=== PATIENT | male | born 1950 | race Caucasian/White ===

== ENCOUNTER 2019-12-03 18:11 | Inpatient (IN) | payer MEDICARE, OTHER ==
[~2019-12-03] VITALS: Ht 172.7 cm; Wt 62.6 kg
--- NOTE | 2019-12-03 18:40 | NUR ---
XI GEIGER FROM SNF FOR PSYCH EVAL. AGITATED, HITTING STAFF. PT CONFUSED, CALM & COOPERATIVE AT THIS TIME. PT SEEN & EVAL'D BY JUANJO CEBALLOS. TUSHAR @ BS & WILL CONT TO MONITOR.
[2019-12-03 19:05] LABS: BASOPHILS # (AUTO) 0.1 /CMM (0.0-0.2); BASOPHILS % (AUTO) 1.2 % (0.0-2.0); EOSINOPHILS % (AUTO) 1.5 % (0.0-6.0); HEMATOCRIT 38 % (39-51); HEMOGLOBIN 12.9 g/dL (13.5-17.5); LYMPHOCYTES # (AUTO) 2.4 /CMM (0.8-4.8); LYMPHOCYTES % (AUTO) 28.3 % (20.0-44.0); MEAN CORPUSCULAR HGB CONC 34 g/dl (31.0-36.0); MEAN CORPUSCULAR VOLUME 85 fL (80-96); MONOCYTES # (AUTO) 0.5 /CMM (0.1-1.30); MONOCYTES % (AUTO) 6.4 % (2.0-12.0); NEUTROPHILS # (AUTO) 5.2 /CMM (1.8-8.9); NEUTROPHILS % (AUTO) 62.6 % (43.0-81.0); PLATELET COUNT (AUTO) 370 /CMM (150-450); RED BLOOD CELL COUNT(AUTO) 4.46 MIL/uL (4.5-6.0); WHITE BLOOD COUNT (AUTO) 8.4 K/uL (4.3-11.0)
[2019-12-03 19:18] LABS: ALANINE AMINOTRANSFERASE 28 U/L (12-78); ALBUMIN 3.4 g/dL (3.4-5.0); ALCOHOL, BLOOD < 3 mg/dL (0-0); ALKALINE PHOSPHATASE 85 U/L (46-116); ASPARTATE AMINOTRANSFERASE 25 U/L (15-37); BILIRUBIN,DIRECT 0.1 mg/dL (0.0-0.2); BILIRUBIN,TOTAL 0.3 mg/dL (0.2-1.0); CARBON DIOXIDE 27 mmol/L (21-32); CHLORIDE 103 mmol/L (98-107); GLUCOSE 110 mg/dL (74-106); POTASSIUM 3.9 mmol/L (3.5-5.1); SODIUM SERUM 138 mmol/L (136-145); TOTAL PROTEIN, SERUM 7.4 g/dL (6.4-8.2); UREA NITROGEN, BLOOD 17 mg/dL (7-18)
[2019-12-03 19:27] LABS: ACETAMINOPHEN < 10 ug/ml (10-30); SALICYLATE 1.2 mg/dL (2.8-20.0)
--- NOTE | 2019-12-03 19:59 | NUR ---
covid swab sent to lab
[2019-12-03 20:21] LABS: APPEARANCE,URINE Clear (CLEAR); BILIRUBIN,URINE Negative (NEGATIVE); BLOOD, URINE Trace-intact Ery/uL (NEGATIVE); COLOR,URINE Yellow (YELLOW); KETONES,URINE Negative (NEGATIVE); LEUKOCYTE ESTERASE ,URINE Negative (NEGATIVE); NITRITE, URINE Negative (NEGATIVE); PH,URINE 5.5 (5.0-8.0); PROTEIN,URINE Negative (NEGATIVE); UGLUCOSE Negative (NEGATIVE); UROBILINOGEN,URINE 0.2 EU/dL (0.2)
[2019-12-03 20:25] LABS: BACTERIA,URINE Rare /HPF (None Seen); WBC,URINE NONE SEEN /HPF (0-3)
--- NOTE | 2019-12-03 20:41 | NUR ---
CALLED [facility] CLERK GEOFFREY MALDONADO FOR EVALUATION. EN ROUTE TO HOSPITAL
--- NOTE | 2019-12-03 21:51 | NUR ---
REPORT GIVEN TO GEOFFREY OROURKE FOR HILDA
[2019-12-03] MEDS ORDERED: DEXT15DR6 OP (22:08)
[2019-12-03] MEDS ORDERED: HYDR-4354 PO (22:08)
[2019-12-03] MEDS ORDERED: LORA-259 IM (22:08)
[2019-12-03] MEDS ORDERED: ACET-73 PO (22:08)
[2019-12-03] MEDS ORDERED: LOSA50TA39 PO (22:08)
[2019-12-03] MEDS ORDERED: BISA-79 PO (22:08)
[2019-12-03] MEDS ORDERED: NA P133E RC (22:08)
[2019-12-03] MEDS ORDERED: ATOR10TA PO (22:08)
[2019-12-03] MEDS ORDERED: TAMS-12 PO (22:08)
[2019-12-03] MEDS ORDERED: MAGN400O21 PO (22:08)
[2019-12-03] MEDS ORDERED: ASPI-1169 PO (22:08)
[2019-12-03] MEDS ORDERED: LIDO30AD10 TP (22:08)
[2019-12-03] MEDS ORDERED: OLAN2.5T3 PO (22:08)
[2019-12-03] MEDS ORDERED: MECL-159 PO (22:08)
[2019-12-03] MEDS ORDERED: FINA5TAB3 PO (22:08)
[2019-12-03] MEDS ORDERED: DOCU-141 PO (22:08)
[2019-12-03] MEDS ORDERED: MAGNESIUM HYDROXIDE 30 ML UDC PO PRN (23:00)
[2019-12-03] MEDS ORDERED: ZOLPIDEM TARTRATE 5 MG TABLET PO PRN (23:00)
[2019-12-03] MEDS ORDERED: MAG HYDROX/AL HYDROX/SIMETH 30 ML UDC PO PRN (23:00)
[2019-12-03] MEDS: LORAZEPAM 1 MG TABLET PO PRN (23:19)
--- NOTE | 2019-12-03 23:20 | NUR ---
GPS RN NOTE: ANXIETY/AGITATION PATIENT IS AGITATED, YELLING, SCREAMING, ANXIOUS, PARANOID, RESTLESS, HYPERVERBAL AT THIS TIME, CURSING STAFF. PRN ATIVAN 1 MG, 1 TAB PO GIVEN, WILL CONTINUE TO MONITOR .
--- NOTE | 2019-12-03 23:22 | NUR ---
ADMISSION NOTES: ADMITTED THIS 69Y/O MALE PATIENT ADMIT FROM [facility] ED / INTIALLY FROM [facility], ADMITTED TO GPS ON 5150 HOLD, PER HOLD DANGER TO OTHERS GD , INCREASED AGITATION STRIKING OUT BEHAVIOR AND HIT STAFF MEMBER IN THE FACE LAST WEEK, SCREAMING YELLING FIGHTING WITH STAFF MEMEBER,UPON FACE TO FACE ASSESSMENT PATIENT IS A&O X , 1,2 ANXIOUS ,DISORGNIZED PARANOID YELLING SCREAMING , TALKATIVE, HYPERVERBAL, PARANOID,DISHELVED ,EASILY GETS AGITATED,UNCOOPERTIVE, DENIES SI /HI AT THIS TIME, PT. IS POOR HISTORIAN, POOR INSIGHT ,POOR JUDGEMENT , PT. REFUSED TO SIGNS ADMISSION CONSENT PAPERS , DUE TO MENTAL STATUS / UNCOOPERTIVE AGITATION , PT. REFUSED INTITAALY BLOOD SUGAR CHECK , ENCOURAGED, EXPLAINED RISKS AND BENEFITS STILL REFUSED, PER PT. I DONT WANTS CHECK AT THIS TIME , BOTH MD AWARE AND NOTIFIED OF THE ADMISSION, BELONGINGS CONTRABAND WERE DONE , NURSING ASSESSMENT DONE ,PT. RIGHTS DISCUSS BY TEACHER CCLC , PROVIDE THE PT. WITH HANDBOOK, AND MEDICATIONS GUIDE, ENVIRONMENTAL SAFETY CHECK DONE, ENCOURAGED PT. VERBALIZED ANY FEELING CONCERN TO STAFF, ORIENT TO UNIT POLICY, NO ACUTE DISTRESS NOTED,VITAL SIGNS WNL ,DENIES ANY PAIN AT THIS TIME,WILL CONTINUE TO MONITOR FOR Q15 SAFETY AND BEHAVIOR.
[2019-12-03] MEDS ORDERED: BLOOD SUGAR DIAGNOSTIC 1 EACH STRIP IN ONE (23:30)
[2019-12-04] VITALS: BP 135/70
[2019-12-04] MEDS ORDERED: LIDOCAINE 5% (PATCH) 1 EA PATCH TP SCH (02:00)
[2019-12-04] MEDS ORDERED: HYDROCODONE/APAP 10/325MG 1 EA TABLET PO PRN (02:00)
[2019-12-04 08:00] VITALS: BP 119/68
[2019-12-04] MEDS: FINASTERIDE (5 MG) 5 MG TABLET PO SCH (08:56)
[2019-12-04] MEDS: ASPIRIN EC 81 MG TABLET.DR PO SCH (08:56)
[2019-12-04] MEDS: LOSARTAN POTASSIUM 50 MG TABLET PO SCH (08:56)
[2019-12-04] MEDS: LIDOCAINE 5% (PATCH) 1 EA PATCH TP SCH (08:57)
[2019-12-04] MEDS: busPIRone 5 MG TABLET PO SCH ×2 (14:31→17:31)
[2019-12-04 16:00] VITALS: BP 98/66
[2019-12-04 20:00] VITALS: BP 105/62
[2019-12-04] MEDS: TAMSULOSIN 0.4 MG CAP.SR.24H PO SCH (21:32)
[2019-12-04] MEDS: QUETIAPINE FUMARATE 25 MG TABLET PO SCH (21:32)
[2019-12-04] MEDS: ATORVASTATIN 10 MG TABLET PO SCH (21:32)
[2019-12-05 08:00] VITALS: BP 111/65
[2019-12-05 08:02] LABS: BASOPHILS # (AUTO) 0.1 /CMM (0.0-0.2); BASOPHILS % (AUTO) 1.2 % (0.0-2.0); CREATININE 1.1 mg/dL (0.6-1.3); EOSINOPHILS % (AUTO) 2.9 % (0.0-6.0); HEMATOCRIT 39 % (39-51); HEMOGLOBIN 12.9 g/dL (13.5-17.5); LYMPHOCYTES # (AUTO) 2.4 /CMM (0.8-4.8); LYMPHOCYTES % (AUTO) 32.4 % (20.0-44.0); MEAN CORPUSCULAR HGB CONC 33 g/dl (31.0-36.0); MEAN CORPUSCULAR VOLUME 86 fL (80-96); MONOCYTES # (AUTO) 0.5 /CMM (0.1-1.30); MONOCYTES % (AUTO) 7.1 % (2.0-12.0); NEUTROPHILS # (AUTO) 4.1 /CMM (1.8-8.9); NEUTROPHILS % (AUTO) 56.4 % (43.0-81.0); PLATELET COUNT (AUTO) 345 /CMM (150-450); POTASSIUM 3.9 mmol/L (3.5-5.1); WHITE BLOOD COUNT (AUTO) 7.3 K/uL (4.3-11.0)
[2019-12-05] MEDS: busPIRone 5 MG TABLET PO SCH ×3 (08:27→16:40)
[2019-12-05] MEDS: ASPIRIN EC 81 MG TABLET.DR PO SCH (08:27)
[2019-12-05] MEDS: FINASTERIDE (5 MG) 5 MG TABLET PO SCH (08:27)
[2019-12-05] MEDS: LOSARTAN POTASSIUM 50 MG TABLET PO SCH (08:28)
[2019-12-05] MEDS: LIDOCAINE 5% (PATCH) 1 EA PATCH TP SCH (08:28)
--- NOTE | 2019-12-05 09:00 | NUR ---
RN NOTE- PT GUARDED NEEDY THOUGH DIRECTABLE SPEECH DELAYED SLOW TO RESPOND THOUGH RELATED TO LANGUAGE NOT MENTAL STATE. PO INTAKE FAIR MED COMPLIANT THIS MORNING DENIES ALL
[2019-12-05 16:00] VITALS: BP 108/64
[2019-12-05] MEDS: QUETIAPINE FUMARATE 25 MG TABLET PO SCH ×2 (16:40→21:20)
[2019-12-05 20:17] VITALS: BP 106/61
[2019-12-05 20:24] VITALS: BP 106/61
[2019-12-05] MEDS: ATORVASTATIN 10 MG TABLET PO SCH (21:19)
[2019-12-05] MEDS: TAMSULOSIN 0.4 MG CAP.SR.24H PO SCH (21:20)
[2019-12-06 08:00] VITALS: BP 108/71
[2019-12-06] MEDS: QUETIAPINE FUMARATE 25 MG TABLET PO SCH ×3 (08:20→22:09)
[2019-12-06] MEDS: busPIRone 5 MG TABLET PO SCH ×3 (08:20→17:07)
[2019-12-06] MEDS: ASPIRIN EC 81 MG TABLET.DR PO SCH (08:20)
[2019-12-06] MEDS: FINASTERIDE (5 MG) 5 MG TABLET PO SCH (08:20)
[2019-12-06] MEDS: LIDOCAINE 5% (PATCH) 1 EA PATCH TP SCH (08:31)
[2019-12-06] MEDS: LOSARTAN POTASSIUM 50 MG TABLET PO SCH (08:31)
--- NOTE | 2019-12-06 09:00 | NUR ---
RN NOTE- NEEDY THOUGH DIRECTABLE SPEECH DELAYED SLOW TO RESPOND THOUGH RELATED TO LANGUAGE NOT MENTAL STATE. PO INTAKE FAIR MED COMPLIANT THIS MORNING DENIES ALL
--- NOTE | 2019-12-06 11:41 | NUR ---
Social Work Discharge Planning: Patient currently resides at [facility] [address] [place] [address]; ([phone]). cargo worker spoke with admin Petra ([phone]) who stated that they are unsure if they will take patient back. cargo worker contacted patient's jeanna Fonseca ([phone]) who was unavailable and left a voicemail. cargo worker will work with the pt and the MD regarding appropriate discharge planning. cargo worker will form a safe and proper discharge.
--- NOTE | 2019-12-06 11:42 | NUR ---
Social Work Family: plate take out worker contacted called patient's Niece Marian ([phone]) and left a voicemail to call back this grant writer.
--- NOTE | 2019-12-06 11:46 | NUR ---
Social Work Coordination of Care: garden worker spoke with admin Petra ([phone]) who stated that they are not planning on taking patient back. This health underwriter faxed ([phone]) and sent patient's clinicals to review.
--- NOTE | 2019-12-06 12:19 | NUR ---
Social Work Note: side door worker spoke with Bronwyn social work msw from [facility] and stated that prior to patient being admitted to [facility], they had arranged an Independent Living for pt. Per Stephanie, she has been trying to get a hold of patient's family but is unable to to get a hold of them to confirm the transition. Per Bronwyn, she stated that when patient is ready for discharge they are able to take him back.
--- NOTE | 2019-12-06 15:06 | NUR ---
Social Work Family Contact: This copywriter contacted patient's sister Marian CHAVIRA ([phone]) who stated that "can you guys not call me I am at the Hospital, I know that I am the FAN but call my mother Joelle". This copywriter attempted to contact oJelle ([phone]) but was unavailable at this moment and will attempt to contact again.
--- NOTE | 2019-12-06 15:14 | NUR ---
INDIVIDUAL INTERVENTION: Pt is unable to participate in group therapy on this present day. Pt is medically unstable pt is currently receiving an IV due to pt not eating or drinking. Addendum: 12/06/19 at 1521 by KAREN LEE INDIVIDUAL INTERVENTION: ROSA met with pt at bedside, pt is not appropriate for group therapy at this time. Pt is agitated and constantly ringing the aldana for attention. Pt refused to speak to SW and appeared confused and disorganized.
[2019-12-06] MEDS: HYDROCORTISONE 1% CREAM 28.35 GM TUBE TP PRN (15:58)
[2019-12-06 16:00] VITALS: BP 128/74
--- NOTE | 2019-12-06 16:10 | NUR ---
Social Work Family Contact: dowel pin worker spoke with patient's sister Joelle ([phone]) who stated that she is agreeable with the Independent Living for patient. This conventional mortgage underwriter requested DPOA documents as patient's niece Marian ([phone]) is the DPOA but is currently is the hospital and is unable to communicate. This conventional mortgage underwriter will contact Marian 12/06 to confirm discharge plan.
--- NOTE | 2019-12-06 16:20 | NUR ---
Social Work Note: compound worker from [facility] sent this junior copywriter DPOA documents. Patient's niece Marian ([phone]) is the DPOA. This junior copywriter placed the documents in the chart.
[2019-12-06 20:02] VITALS: BP 106/62
[2019-12-06] MEDS: TAMSULOSIN 0.4 MG CAP.SR.24H PO SCH (22:09)
[2019-12-06] MEDS: ATORVASTATIN 10 MG TABLET PO SCH (22:09)
[2019-12-07 08:00] VITALS: BP 114/69
[2019-12-07] MEDS: ASPIRIN EC 81 MG TABLET.DR PO SCH (08:20)
[2019-12-07] MEDS: FINASTERIDE (5 MG) 5 MG TABLET PO SCH (08:20)
[2019-12-07] MEDS: LIDOCAINE 5% (PATCH) 1 EA PATCH TP SCH (08:20)
[2019-12-07] MEDS: QUETIAPINE FUMARATE 25 MG TABLET PO SCH ×3 (08:20→21:08)
[2019-12-07] MEDS: busPIRone 5 MG TABLET PO SCH ×3 (08:20→16:28)
[2019-12-07] MEDS: LOSARTAN POTASSIUM 50 MG TABLET PO SCH (08:21)
[2019-12-07] MEDS: HYDROCORTISONE 1% CREAM 28.35 GM TUBE TP PRN (08:26)
--- NOTE | 2019-12-07 09:00 | NUR ---
RN NOTE- PT ALERT REPETITIVE SPEECH PATTERNS NEEDY AT TIMES DEMANDING THOUGH EASILY DIRECTABLE PO INTAKE GOOD MED COMPLIANT FOCUS ON MD AND DC
--- NOTE | 2019-12-07 09:18 | NUR ---
Social Work Note: clearing tub worker spoke with Ayaz ([phone]) who is helping Bronwyn social work supervisor ([phone]) from [facility] to find patient a placement such as an Independent Living. This residential mortgage underwriter contacted Bronwyn ([phone]) but was unavailable. This residential mortgage underwriter left a voicemail. This residential mortgage underwriter contacted Ayaz ([phone]) who helps patient's find a placement.
--- NOTE | 2019-12-07 14:00 | NUR ---
Social Work Individual Therapy: This pattern chart writer attempted to meet with patient to provide brief counseling. Patient continuously kept complaining that he needs a television in his room. Patient is hyperverbal and is unable to have a meaningful conversation. Patient requires frequent re-direction. This pattern chart writer was unable to provide brief counseling.
--- NOTE | 2019-12-07 14:38 | NUR ---
GROUP NOTE: Pt was asleep and not easily roused by verbal cues.
[2019-12-07 16:02] VITALS: BP 120/70
[2019-12-07 20:16] VITALS: BP 116/73
[2019-12-07] MEDS: ACETAMINOPHEN 325 MG TABLET PO PRN (20:27)
--- NOTE | 2019-12-07 20:27 | NUR ---
GPS RN NOTE: PAIN PT. C/O OF RIB PAIN. ADMINISTERED TYLENOL 650 MG PO PRN ORDERED. WILL CONTINUE TO MONITOR FOR SAFETY AND BEHAVIOR
[2019-12-07] MEDS: TAMSULOSIN 0.4 MG CAP.SR.24H PO SCH (21:08)
[2019-12-07] MEDS: ATORVASTATIN 10 MG TABLET PO SCH (21:08)
[2019-12-08 08:00] VITALS: BP 116/72
[2019-12-08] MEDS: busPIRone 5 MG TABLET PO SCH ×3 (08:45→16:36)
[2019-12-08] MEDS: ASPIRIN EC 81 MG TABLET.DR PO SCH (08:45)
[2019-12-08] MEDS: LOSARTAN POTASSIUM 50 MG TABLET PO SCH (08:46)
[2019-12-08] MEDS: FINASTERIDE (5 MG) 5 MG TABLET PO SCH (08:46)
[2019-12-08] MEDS: LIDOCAINE 5% (PATCH) 1 EA PATCH TP SCH (08:46)
[2019-12-08] MEDS: QUETIAPINE FUMARATE 25 MG TABLET PO SCH ×4 (08:48→21:11)
--- NOTE | 2019-12-08 11:39 | NUR ---
Social Work Family Contact: shore worker contacted patient's FAN Fonseca ([phone]) and left a voicemail to call back. This ad writer left a detailed voicemail in regard to patient's discharge plan: This ad writer contacted patient's sister Joelle ([phone]) is aware and agreeable with patients discharge plan to an Independent Living [address] [place] [address]. Per Joelle, she stated the FAN Fonseca is unable to communicate at the moment because she is at the hospital.
--- NOTE | 2019-12-08 11:41 | NUR ---
Social Work Coordination of Care: fountain worker spoke with Mayra social studies teacher from [facility] ([phone]) who stated that patient has an accepting Independent Living [address] [facility] [address]. She stated that the family is aware of this transition and that this was the plan for pt to transition to an Independent Living Prior to his admission at [facility]. Pt will follow-up with doctor Courtney ([phone]) who has been pt's doctor for many years. Dr. Courtney will prescribe pt anti-psychotic medications at the [facility]. Addendum: 12/09/19 at 0830 by ROSA CANTOR Phone number for Independent Living is ([phone]).
--- NOTE | 2019-12-08 14:26 | NUR ---
GROUP NOTE: Pt was asleep and not easily aroused by verbal cues.
[2019-12-08 16:00] VITALS: BP 100/68
[2019-12-08 20:13] VITALS: BP 99/59
[2019-12-08] MEDS: ATORVASTATIN 10 MG TABLET PO SCH (21:11)
[2019-12-08] MEDS: TAMSULOSIN 0.4 MG CAP.SR.24H PO SCH (21:11)
[2019-12-08] MEDS: ACETAMINOPHEN 325 MG TABLET PO PRN (22:02)
--- NOTE | 2019-12-08 22:02 | NUR ---
GPS RN NOTE: HEADACHE PT. C/O OF HEADACHE AND REQUESTED TYLENOL. ADMINISTERED TYLENOL 650 MG PO PRN ORDERED. WILL CONTINUE TO MONITOR FOR SAFETY AND BEHAVIOR
[2019-12-09 08:00] VITALS: BP 133/64
[2019-12-09] MEDS: ASPIRIN EC 81 MG TABLET.DR PO SCH (08:30)
[2019-12-09] MEDS: LOSARTAN POTASSIUM 50 MG TABLET PO SCH (08:30)
[2019-12-09] MEDS: busPIRone 5 MG TABLET PO SCH ×3 (08:30→16:40)
[2019-12-09] MEDS: FINASTERIDE (5 MG) 5 MG TABLET PO SCH (08:30)
[2019-12-09] MEDS: QUETIAPINE FUMARATE 25 MG TABLET PO SCH ×4 (08:30→21:12)
[2019-12-09] MEDS: LIDOCAINE 5% (PATCH) 1 EA PATCH TP SCH (08:30)
--- NOTE | 2019-12-09 08:56 | NUR ---
Social Work Individual Therapy: This flex o writer operator attempted to meet with patient to provide brief counseling. Patient is unable to have a meaningful conversation with this flex o writer operator. This flex o writer operator had to re-direct pt multiple times. This flex o writer operator was unable to conduct brief counseling.
--- NOTE | 2019-12-09 09:53 | NUR ---
Social Work Family Contact: ornamental ironworker helper spoke with patient's sister Joelle ([phone]) and gave pt's Independent Living information that he will be going to [address] [place] [address]; ([phone]).
[2019-12-09] MEDS: ACETAMINOPHEN 325 MG TABLET PO PRN ×2 (10:26→21:33)
--- NOTE | 2019-12-09 10:28 | NUR ---
GPS/RN-NOTES PATIENT C/O LOWER BACK PAIN AND REQUESTING TYLENOL,TYLENOL 650MH P.O GIVEN PRN ORDER. WILL CONT. MONITORING .
--- NOTE | 2019-12-09 14:25 | NUR ---
GROUP NOTE: Pt was asleep and not easily roused by verbal cues.
[2019-12-09] MEDS: LORAZEPAM 1 MG TABLET PO PRN (14:47)
--- NOTE | 2019-12-09 14:52 | NUR ---
GPS/RN-NOTES NOTED PATIENT WALKING WITH THE WALKER IN THE HALLWAY, ANGRY AND SCREAMING AT STAFF STATED" I WANT TO TALK TO THE VICE PRESIDENT RISK MANAGEMENT AND GO HOME". REDIRECTED AND REORIENTED PATIENT BACK TO HIS ROOM. OFFERED ATIVAN AND AGREED. ATIVAN 1MG P.O GIVEN PRN ORDER. WILL CONT. MONITORING FOR SAFETY AND BEHAVIOR.
--- NOTE | 2019-12-09 15:45 | NUR ---
GPS/RN-NOTES PATIENT LAYING IN BED CALM,NO ACUTE DISTRESS NOTED.
[2019-12-09 16:00] VITALS: BP 102/58
[2019-12-09 20:51] VITALS: BP 105/87
[2019-12-09] MEDS: TAMSULOSIN 0.4 MG CAP.SR.24H PO SCH (21:12)
[2019-12-09] MEDS: ATORVASTATIN 10 MG TABLET PO SCH (21:12)
--- NOTE | 2019-12-09 21:34 | NUR ---
GPS-RN NOTE: LOWER BACK PAIN PATIENT C/O LOWER BACK PAIN AND REQUESTING TYLENOL, PRN TYLENOL 650MG PO GIVEN. WILL CONTINUE TO MONITOR.
[2019-12-10] MEDS: ACETAMINOPHEN 325 MG TABLET PO PRN ×2 (07:11→20:52)
--- NOTE | 2019-12-10 07:12 | NUR ---
GPS-RN NOTE: LOWER BACK PAIN PATIENT C/O LOWER BACK PAIN AND REQUESTING TYLENOL, PRN TYLENOL 650MG PO GIVEN. WILL CONTINUE TO MONITOR.
[2019-12-10 08:00] VITALS: BP 114/64
[2019-12-10] MEDS: LIDOCAINE 5% (PATCH) 1 EA PATCH TP SCH (08:18)
[2019-12-10] MEDS: FINASTERIDE (5 MG) 5 MG TABLET PO SCH (08:18)
[2019-12-10] MEDS: LOSARTAN POTASSIUM 50 MG TABLET PO SCH (08:18)
[2019-12-10] MEDS: QUETIAPINE FUMARATE 25 MG TABLET PO SCH ×4 (08:18→21:17)
[2019-12-10] MEDS: ASPIRIN EC 81 MG TABLET.DR PO SCH (08:18)
[2019-12-10] MEDS: busPIRone 5 MG TABLET PO SCH ×3 (08:18→16:37)
--- NOTE | 2019-12-10 14:59 | NUR ---
GROUP NOTE: rattan worker invited pt to participate in group. Pt refused and stated that he wants to sleep.
[2019-12-10 16:00] VITALS: BP 118/68
[2019-12-10 19:53] VITALS: BP 146/72
[2019-12-10 20:00] VITALS: BP 146/72
[2019-12-10] MEDS: ATORVASTATIN 10 MG TABLET PO SCH (21:17)
[2019-12-10] MEDS: TAMSULOSIN 0.4 MG CAP.SR.24H PO SCH (21:17)
[2019-12-11 08:00] VITALS: BP 112/68
[2019-12-11] MEDS: LOSARTAN POTASSIUM 50 MG TABLET PO SCH (08:42)
[2019-12-11] MEDS: FINASTERIDE (5 MG) 5 MG TABLET PO SCH (08:42)
[2019-12-11] MEDS: ASPIRIN EC 81 MG TABLET.DR PO SCH (08:42)
[2019-12-11] MEDS: busPIRone 5 MG TABLET PO SCH ×3 (08:42→17:14)
[2019-12-11] MEDS: QUETIAPINE FUMARATE 25 MG TABLET PO SCH ×4 (08:42→21:23)
[2019-12-11] MEDS: LIDOCAINE 5% (PATCH) 1 EA PATCH TP SCH (09:04)
[2019-12-11] MEDS: LORAZEPAM 1 MG TABLET PO PRN ×2 (09:20→20:06)
[2019-12-11] MEDS: ACETAMINOPHEN 325 MG TABLET PO PRN ×2 (09:20→17:14)
--- NOTE | 2019-12-11 09:20 | NUR ---
RN NOTE: PAIN/ANXIETY PT C/O 09/25 LEFT BACK PAIN. PT ALSO WITH INCREASED ANXIETY AND AGITATION. MEDICATED WITH TYLENOL 650 MG PO PRN AND ATIVN 1MG PO PRN.
[2019-12-11 16:00] VITALS: BP 136/77
--- NOTE | 2019-12-11 17:15 | NUR ---
RN NOTE: PAIN PT C/O 5/10 BACK PAIN. MEDICATED WITH TYLENOL 650 MG PO PRN
[2019-12-11 20:00] VITALS: BP 106/61
--- NOTE | 2019-12-11 20:09 | NUR ---
GPS RN NOTE: ANXIETY PATIENT IS VERY ANXIOUS, RESTLESS, YELLING, HYPERVERBAL. PRN ATIVAN 1 MG 1 TAB PO GIVEN. WILL MONITOR FOR ANY CHANGES.
[2019-12-11 20:25] VITALS: BP 106/61
[2019-12-11 20:53] LABS: APPEARANCE,URINE CLEAR (CLEAR); BILIRUBIN,URINE NEGATIVE (NEGATIVE); BLOOD, URINE NEGATIVE Ery/uL (NEGATIVE); COLOR,URINE YELLOW (YELLOW); KETONES,URINE NEGATIVE (NEGATIVE); LEUKOCYTE ESTERASE ,URINE NEGATIVE (NEGATIVE); NITRITE, URINE NEGATIVE (NEGATIVE); PROTEIN,URINE NEGATIVE (NEGATIVE); UGLUCOSE NEGATIVE (NEGATIVE); UROBILINOGEN,URINE 0.2 EU/dL (0.2)
[2019-12-11] MEDS: ATORVASTATIN 10 MG TABLET PO SCH (21:22)
[2019-12-11] MEDS: TAMSULOSIN 0.4 MG CAP.SR.24H PO SCH (21:22)
--- NOTE | 2019-12-11 21:45 | NUR ---
GPS RN NOTE: REFUSED SKIN ASSESSMENT PATIENT REFUSED SKIN ASSESSMENT, EASILY AGITATED, SCREAMS/YELLS, RESTLESS, WANTED TO BE COVERED WITH BLANKET & KEPT REFUSING SKIN ASSESSMENT X 3
[2019-12-12] MEDS: ACETAMINOPHEN 325 MG TABLET PO PRN ×3 (03:18→22:17)
--- NOTE | 2019-12-12 03:18 | NUR ---
GPS RN NOTE: PAIN PATIENT WOKE UP & C/O GENERALIZED BODY PAIN 07/26, REQUESTED TO GET TYLENOL, PRN TYLENOL 650 MG PO GIVEN ORDERED. WILL CONTINUE TO MONITOR.
[2019-12-12 08:00] VITALS: BP 118/70
[2019-12-12] MEDS: busPIRone 5 MG TABLET PO SCH ×3 (08:45→17:17)
[2019-12-12] MEDS: ASPIRIN EC 81 MG TABLET.DR PO SCH (08:45)
[2019-12-12] MEDS: QUETIAPINE FUMARATE 25 MG TABLET PO SCH ×4 (08:45→21:47)
[2019-12-12] MEDS: LIDOCAINE 5% (PATCH) 1 EA PATCH TP SCH (08:45)
[2019-12-12] MEDS: LORAZEPAM 1 MG TABLET PO PRN (08:46)
[2019-12-12] MEDS: LOSARTAN POTASSIUM 50 MG TABLET PO SCH (08:46)
[2019-12-12] MEDS: FINASTERIDE (5 MG) 5 MG TABLET PO SCH (08:50)
--- NOTE | 2019-12-12 08:52 | NUR ---
RN NOTE: PAIN.ANXIETY PT C/O 07/26 GENERALIZED PAIN AND ANXIETY. MEDICATED WITH TYLENOL 650MG PO PRN AND ATIVAN 1MG PO PRN
--- NOTE | 2019-12-12 13:40 | NUR ---
RN NOTE: PAIN PT C/O 12/26 BACK PAIN. MEDICATED WITH 10/325 MG NORCO.
[2019-12-12 16:00] VITALS: BP 123/68
[2019-12-12 20:00] VITALS: BP 100/59
[2019-12-12 20:08] VITALS: BP 100/59
[2019-12-12 21:15] VITALS: BP 109/65
[2019-12-12] MEDS: ATORVASTATIN 10 MG TABLET PO SCH (21:47)
[2019-12-12] MEDS: TAMSULOSIN 0.4 MG CAP.SR.24H PO SCH (21:47)
--- NOTE | 2019-12-12 22:17 | NUR ---
GPS RN NOTE: PAIN PATIENT C/O GENERALIZED BODY PAIN 07/26, REQUESTED TO GET TYLENOL, PRN TYLENOL 650 MG PO GIVEN ORDERED. WILL CONTINUE TO MONITOR.
[2019-12-13] MEDS: ACETAMINOPHEN 325 MG TABLET PO PRN ×2 (06:55→17:03)
--- NOTE | 2019-12-13 06:55 | NUR ---
GPS RN NOTE: PAIN PATIENT C/O GENERALIZED BODY PAIN, REQUESTED TO GET TYLENOL, PRN TYLENOL 650 MG PO GIVEN ORDERED. WILL ENDORSE TO AM RN FOR CONTINUITY OF CARE.
[2019-12-13 08:00] VITALS: BP 131/81
[2019-12-13] MEDS: LOSARTAN POTASSIUM 50 MG TABLET PO SCH (08:51)
[2019-12-13] MEDS: LIDOCAINE 5% (PATCH) 1 EA PATCH TP SCH (08:51)
[2019-12-13] MEDS: FINASTERIDE (5 MG) 5 MG TABLET PO SCH (08:51)
[2019-12-13] MEDS: busPIRone 5 MG TABLET PO SCH ×3 (08:52→17:03)
[2019-12-13] MEDS: QUETIAPINE FUMARATE 25 MG TABLET PO SCH ×3 (08:52→21:16)
[2019-12-13] MEDS: ASPIRIN EC 81 MG TABLET.DR PO SCH (08:52)
--- NOTE | 2019-12-13 09:49 | NUR ---
Social Work Note: store worker spoke with Mayra social work therapist from [facility] ([phone]) who stated that they are unable to admit due to patient being positive at there facility. Per public health they are unable to accept patient back. This telegraphic typewriter operator chief spoke with Santa ([phone]) from [facility] who approved for patient to go there on 12/14 at 1PM. They are unable to provide transportation and family member has to arrange.
[2019-12-13 16:00] VITALS: BP 140/79
--- NOTE | 2019-12-13 17:04 | NUR ---
RN NOTE: PAIN PT C/O 08/26 BACK PAIN. MED WITH TYLENOL 650MG PO PRN
--- NOTE | 2019-12-13 19:56 | NUR ---
GPS-RN NOTE: URINE CX RESULT REPORTED TO GEORGE ENNIS REGARDING URINE CULTURE RESULTS ORGANISM #1 PROTEUS MIRABILIS WITH NEW ORDER OF KEFLEX 500MG PO Q12HRS ORDERS NOTED AND CARRIED OUT.
[2019-12-13 20:11] VITALS: BP 109/61
[2019-12-13] MEDS: CEPHALEXIN MONOHYDRATE 500 MG CAPSULE PO SCH (21:16)
[2019-12-13] MEDS: ATORVASTATIN 10 MG TABLET PO SCH (21:16)
[2019-12-13] MEDS: TAMSULOSIN 0.4 MG CAP.SR.24H PO SCH (21:16)
[2019-12-14 08:00] VITALS: BP 104/66
[2019-12-14] MEDS: ASPIRIN EC 81 MG TABLET.DR PO SCH (08:37)
[2019-12-14] MEDS: busPIRone 5 MG TABLET PO SCH ×3 (08:37→17:48)
[2019-12-14] MEDS: LIDOCAINE 5% (PATCH) 1 EA PATCH TP SCH (08:37)
[2019-12-14] MEDS: FINASTERIDE (5 MG) 5 MG TABLET PO SCH (08:37)
[2019-12-14] MEDS: CEPHALEXIN MONOHYDRATE 500 MG CAPSULE PO SCH ×2 (08:37→20:36)
[2019-12-14] MEDS: QUETIAPINE FUMARATE 25 MG TABLET PO SCH ×3 (08:37→21:12)
[2019-12-14] MEDS: LOSARTAN POTASSIUM 50 MG TABLET PO SCH (08:38)
[2019-12-14] MEDS: ACETAMINOPHEN 325 MG TABLET PO PRN (08:50)
--- NOTE | 2019-12-14 08:50 | NUR ---
medicated for back pain with tylenol 650 mg po.
--- NOTE | 2019-12-14 15:06 | NUR ---
GROUP NOTE: Group Topic: Depression SW invited patient to group, however patient was asleep at this time.
[2019-12-14 16:00] VITALS: BP 115/69
--- NOTE | 2019-12-14 18:54 | NUR ---
NO CHANGE IN STATUS,TALKS TO SELF OFTEN.
[2019-12-14 19:56] VITALS: BP 116/68
[2019-12-14] MEDS: TAMSULOSIN 0.4 MG CAP.SR.24H PO SCH (21:12)
[2019-12-14] MEDS: ATORVASTATIN 10 MG TABLET PO SCH (21:12)
[2019-12-15] MEDS: ACETAMINOPHEN 325 MG TABLET PO PRN ×2 (04:28→13:22)
--- NOTE | 2019-12-15 04:37 | NUR ---
GPS RN NOTE: PAIN PT COMPLAINED OF MILD BACK PAIN AND STATED "I NEED TYLENOL". ADMINISTERED PRN TYLENOL @ 0428. WILL REASSESS AND CONTINUE TO MONITOR Q15 MIN FOR SAFETY AND BEHAVIOR.
[2019-12-15 08:00] VITALS: BP 120/66
--- NOTE | 2019-12-15 08:14 | NUR ---
ROSA Discharge Note: Patient will be discharged to Independent Living Facility [address] [place], [place] [id number] ([phone]). Patient's sister Joelle ([phone]) will provide transportation through [employer] ([phone]) spoke with Anderson at 11:15AM. Patient's DPOA Marian ([phone]) is aware and agreeable. This television writer spoke with Santa ([phone]) and Ayaz ([phone]). who confirmed that patient is accepted. Patient is alert and oriented x2. Patient is not able to plan for self-care at this time but is willing to accept care provided for him at the facility. Patient denies suicidal or homicidal ideation. Patient is aware and agreeable with discharge plans. Patient presents with euthymic mood and congruent affect. Patient will continue to follow up with primary physician doctor Sherwin [address] [place] [address] ([phone]) who has been patient's doctor for many years and will be seen on 12/16/[address] Courtney will monitor and manage anti-psychotic medications at the [facility] [address] [place] [address] ([phone]). Addendum: 12/15/19 at 0934 by AIXA MADERA Discharge plan for today has been cancelled by Dr. Snyder.
[2019-12-15] MEDS: LORAZEPAM 1 MG TABLET PO PRN ×4 (08:21→16:12)
[2019-12-15] MEDS: FINASTERIDE (5 MG) 5 MG TABLET PO SCH (08:21)
[2019-12-15] MEDS: CEPHALEXIN MONOHYDRATE 500 MG CAPSULE PO SCH ×2 (08:21→20:19)
[2019-12-15] MEDS: busPIRone 5 MG TABLET PO SCH ×3 (08:21→17:43)
[2019-12-15] MEDS: QUETIAPINE FUMARATE 25 MG TABLET PO SCH ×3 (08:23→21:16)
[2019-12-15] MEDS: ASPIRIN EC 81 MG TABLET.DR PO SCH (08:23)
[2019-12-15] MEDS: LIDOCAINE 5% (PATCH) 1 EA PATCH TP SCH (08:28)
[2019-12-15] MEDS: LOSARTAN POTASSIUM 50 MG TABLET PO SCH (08:29)
--- NOTE | 2019-12-15 08:45 | NUR ---
AT THIS TIME PT. ACTING UP YELLING,REFUSING AM MEDS AT THIS TIME.CALL OUT TO DR. PRIETO TO INFORM HIM.
--- NOTE | 2019-12-15 09:00 | NUR ---
ROSA Discharge Planning: ROSA spoke with patient's nephew Campbell ([phone]) and informed of the patient's discharge today being cancelled, Campbell was understanding. This chief underwriter also spoke with Santa ([phone])from the Independent Living Facility the patient is accepted at and informed of the change in discharge date. Santa is aware and agreeable for the patient to be discharge on Friday.
--- NOTE | 2019-12-15 09:20 | NUR ---
dr. hughes here and observed pt.instructed him to take meds,with some coaxing pt. complied.
--- NOTE | 2019-12-15 09:25 | NUR ---
along with routine meds pt. took ativan.
--- NOTE | 2019-12-15 09:40 | NUR ---
now pt. down at social work manager's office talking to her about.discharge.informed dc delayed till friday as he is not ready for dc today.
--- NOTE | 2019-12-15 10:07 | NUR ---
SW Individual Therapy Note: SW met with patient who presented with agitated mood and labile affect. Patient was unable to engage in a meaningful conversation due to his agitated mood. Patient was rambling, shouting, and difficult to redirect. SW attempted to discuss the patient change in discharge plan, however patient was non cooperative.
--- NOTE | 2019-12-15 13:22 | NUR ---
GIVEN TYLENOL 650 MG PO FOR BACK PAIN.
--- NOTE | 2019-12-15 14:15 | NUR ---
RN WALKING IN TO RM.PT. ATTEMPTING TO GET OOB WITH DIFFICULTY.PT. WITH USE OF WALKER.AND WALKING UNSTEADILY AND CROOKED.SEEMS WEAK AND PLACED IN ALINE CHAIR.
--- NOTE | 2019-12-15 15:35 | NUR ---
Group Note: SW encouraged the pt to attend group therapy on 12/15/19 on the topic of discharge planning. Pt refused to attend the group because he was upset about his discharge being postponed. Pt stated that he did not want to talk to the SW.
[2019-12-15 16:00] VITALS: BP 127/84
--- NOTE | 2019-12-15 16:04 | NUR ---
ATTEMPTING TO GIVE ATIVAN.EXTREMELY AGITATED.
--- NOTE | 2019-12-15 16:25 | NUR ---
GAVE PT. ATIVAN 1 MG PO AT THIS TIME. NOW BACK IN BED.
[2019-12-15 19:36] VITALS: BP 99/59
[2019-12-15 19:59] VITALS: BP 119/69
[2019-12-15] MEDS: TAMSULOSIN 0.4 MG CAP.SR.24H PO SCH (21:16)
[2019-12-15] MEDS: ATORVASTATIN 10 MG TABLET PO SCH (21:16)
--- NOTE | 2019-12-16 01:08 | NUR ---
Discharge Planning: home health care social worker spoke with Santa ([phone]) and Ayaz ([phone]) regarding patient's change in discharge date. Both are aware of patient's arrival to the Independent Living Facility [address] [place] [address] ([phone]) tomorrow afternoon. This continuity writer also spoke with patient's nephew, Shobha ([phone]) who is also aware and agreeable. This continuity writer provided shobha with [employer] information in order for him to pay for the patient's transportation for tomorrow.
[2019-12-16 08:20] VITALS: BP 109/65
[2019-12-16] MEDS: FINASTERIDE (5 MG) 5 MG TABLET PO SCH (08:24)
[2019-12-16] MEDS: busPIRone 5 MG TABLET PO SCH ×3 (08:24→16:47)
[2019-12-16] MEDS: ASPIRIN EC 81 MG TABLET.DR PO SCH (08:24)
[2019-12-16] MEDS: QUETIAPINE FUMARATE 25 MG TABLET PO SCH ×3 (08:24→21:31)
[2019-12-16] MEDS: LIDOCAINE 5% (PATCH) 1 EA PATCH TP SCH (08:24)
[2019-12-16] MEDS: CEPHALEXIN MONOHYDRATE 500 MG CAPSULE PO SCH ×2 (08:24→21:08)
[2019-12-16] MEDS: LOSARTAN POTASSIUM 50 MG TABLET PO SCH (08:30)
[2019-12-16] MEDS: ACETAMINOPHEN 325 MG TABLET PO PRN (08:53)
--- NOTE | 2019-12-16 14:13 | NUR ---
GROUP NOTE: Topic: Adapting to our environment. Patient presented guarded when SW encouraged patient to participate in group therapy. Patient stated, "I am feeling better". Patient was more focused on his water bottle and turning it upside down. SW encouraged patient to participate in group and engage with peers.
[2019-12-16 16:00] VITALS: BP 103/70
[2019-12-16 20:14] VITALS: BP 102/61
[2019-12-16] MEDS: ATORVASTATIN 10 MG TABLET PO SCH (21:31)
[2019-12-16] MEDS: TAMSULOSIN 0.4 MG CAP.SR.24H PO SCH (21:31)
[2019-12-17 08:00] VITALS: BP 114/69
[2019-12-17] MEDS: CEPHALEXIN MONOHYDRATE 500 MG CAPSULE PO SCH (08:09)
[2019-12-17] MEDS: FINASTERIDE (5 MG) 5 MG TABLET PO SCH (08:09)
[2019-12-17] MEDS: ASPIRIN EC 81 MG TABLET.DR PO SCH (08:09)
[2019-12-17] MEDS: LIDOCAINE 5% (PATCH) 1 EA PATCH TP SCH (08:10)
[2019-12-17] MEDS: busPIRone 5 MG TABLET PO SCH (08:10)
[2019-12-17] MEDS: QUETIAPINE FUMARATE 25 MG TABLET PO SCH (08:10)
[2019-12-17 08:11] VITALS: BP 114/69
[2019-12-17] MEDS: LOSARTAN POTASSIUM 50 MG TABLET PO SCH (08:11)
--- NOTE | 2019-12-17 08:35 | NUR ---
Dr. Snyder gave an order to D/C hold an D/C to Independent Living Facility at [address] [place] [address] and continue to follow up with the primary physician Dr. Courtney at [address] [facility] [address] with the tel# of [phone].
--- NOTE | 2019-12-17 10:47 | NUR ---
GPS/RN-NOTES PATIENT HAD A DISCHARGE ORDER FROM DR. PRIETO ( PSYCHIATRIST) TODAY.ALEXANDER WHITE ( INVENTORY TECHNICIAN) MADE AWARE WITH ORDERS. PATIENT DID NOT VERBALIZE SI/HI,DENIES VISUAL/AUDITORY HALLUCINATIONS AT THE TIME OF DISCHARGE. PATIENT WAS DISCHARGE TO INDEPENDENT LIVING FACILITY. PER NOTES PATIENT FAN BOWMAN [phone] WAS AWARE AND AGREED WITH THE DISCHARGE. PATIENT WAS WHEELED DOWN BY ONE BLOOD BANK TECHNOLOGIST STAFF IN THE LOBBY FOR SAFETY. ALL BELONGINGS WAS GIVEN BACK TO THE PATIENT. PATIENT LEFT THE UNIT IN STABLE CONDITION ALERT ORIENTED X3 ,NO ACUTE DISTRESS NOTED. ABLE TO AMBULATE USING WALKER. MASK WAS OFFERED TO THE PATIENT ,HE WAS BOLT HEADER BY [employer] BY JOS.
--- NOTE | 2019-12-17 11:28 | NUR ---
Discharge Note: Patient will be discharged to Independent Living Facility [address] [place] [address] ([phone]). Patient's sister Joelle ([phone]) will provide transportation through [employer] ([phone]) spoke with Anderson at 11:15AM. Patient's DPOA Marian ([phone]) is aware and agreeable. This press writer spoke with Santa ([phone]) and Ayaz ([phone]) who confirmed that patient is accepted. Patient is alert and oriented x2-3. Patient is not able to plan for self-care at this time but is willing to accept care provided for him at the facility. Patient denies suicidal or homicidal ideation. Patient is aware and agreeable with discharge plans. Patient presents with euthymic mood and congruent affect. Patient will continue to follow up with primary physician doctor Sherwin [address] , [place] [address] ([phone]) who has been patient's doctor for many years and will be seen on 12/20/[address] Courtney will monitor and manage anti-psychotic medications at the Independent Living [address] [place] [address] ([phone]).
--- NOTE | 2019-12-17 14:56 | NUR ---
SW Note: This social professionals received a call from [employer] ([phone]) who reported that the Independent Living to where pt. was discharged at [address] [facility] [address] ([phone]) was not accepting the patient. This magnetic tape typewriter operator contacted Santa ([phone]) and Ayaz ([phone]) who accepted the patient regarding this concern. Santa stated that they received a COVID positive patient in their facility and could not admit Hamid. Santa stated that they would transfer Hamid to their sister facility [place] [address] [place] [address]. Santa sent a driver salesman by the name of Navin to pickup driver the patient and transfer him to the new location. This magnetic tape typewriter operator spoke with patients nephew, Campbell ([phone]) and informed him of this change. Campbell was agreeable to the change in location.
== END 2019-12-17 10:37 | DRG 885 ==
LOC: ER 18:24 → GPS 21:40
PROVIDERS: ADMIT Psychiatry & Neurology Psychiatry; ATTEND Nurse Practitioner Acute Care
DX: F29 Unspecified psychosis not due to a substance or known physiological condition (principal); F03.91 Unspecified dementia, unspecified severity, with behavioral disturbance; G47.00 Insomnia, unspecified; F41.9 Anxiety disorder, unspecified; I10 Essential (primary) hypertension; N40.0 Benign prostatic hyperplasia without lower urinary tract symptoms; N30.20 Other chronic cystitis without hematuria; Z87.440 Personal history of urinary (tract) infections; M19.90 Unspecified osteoarthritis, unspecified site; F20.9 Schizophrenia, unspecified; M54.30 Sciatica, unspecified side; D64.9 Anemia, unspecified; Z79.899 Other long term (current) drug therapy; Z73.6 Limitation of activities due to disability
CPT/HCPCS: 36415; 80048-TC; 80061-TC; 80076-TC; 80305; 81000-TC; 85025-TC; 87081-TC; 87086-TC; 87186-TC; 97116-TC; 97530-TC; G0480; J7030